=== PATIENT | female | born 1955 | race Caucasian/White ===

== ENCOUNTER 2018-08-08 10:17 | Emergency (ER) | payer MEDICAID ==
[~2018-08-08 10:17] MED LIST: FURO20TA4 PO; LACT PO; PANT40TA25 PO; RIFA550T PO; SPIR50TA5 PO
[2018-08-08 12:34] LABS: BASOPHILS % (AUTO) 0.7 % (0.0-5.0); HEMATOCRIT 30.3 % (36-48); LYMPHOCYTES % (AUTO) 11.8 % (21.0-51.0); MEAN CORPUSCULAR HEMOGLOBIN 36.1 pg (27.0-33.0); MEAN CORPUSCULAR HGB CONC 35.4 g/dL (32.0-36.0); MEAN CORPUSCULAR VOLUME 102.1 fL (79-99); MONOCYTES % (AUTO) 14.4 % (3.0-13.0); NEUTROPHILS % (AUTO) 72.1 % (40.0-77.0); PLATELET COUNT (AUTO) 62 K/uL (130-400); RED BLOOD CELL COUNT(AUTO) 2.97 MIL/uL (4.00-5.50); WHITE BLOOD COUNT (AUTO) 5.7 K/uL (4.8-10.8)
[2018-08-08 12:44] LABS: CREATININE 0.8 mg/dL (0.5-1.5); POTASSIUM 4.1 mmol/L (3.5-5.1)
[2018-08-08 12:45] LABS: INR 1.51 (0.85-1.15); PROTHROMBIN TIME 15.7 SEC (9.6-11.6)
[2018-08-08 12:48] LABS: ALBUMIN 2.4 g/dL (3.5-5.0); BILIRUBIN,TOTAL 4.9 mg/dL (0.2-1.0); MAGNESIUM 1.7 mg/dL (1.80-2.40); TOTAL PROTEIN, SERUM 6.3 g/dL (6.0-8.3)
--- NOTE | 2018-08-08 15:20 | NUR ---
U/S GD PARACENTESIS PROCEDURE PERFORMED BY DR FRANCO. PUNCTURE SITE RUQ AND PATIENT TOLERATED PROCEDURE WELL. TOTAL REMOVED 2.8 LITERS OF CLOUDY YELLOW FLUID. END OF PROCEDURE AT 1530. CATHETER REMOVED AND DRESSING APPLIED. NO BLEEDING NOTED. REPORT GIVEN TO ALEXANDRE CARMICHAEL AND PATIENT TRANSPORTED TO ED-13 VIA STRETCHER. STABLE, AAO X3 WITH NO C/O PAIN.
== END 2018-08-08 16:04 | disposition home or self-care (01) ==
LOC: EDH 10:17
DX: R18.8 Other ascites (principal); M25.471 Effusion, right ankle; M25.472 Effusion, left ankle; R79.1 Abnormal coagulation profile
CPT/HCPCS: 36415; 49083; 80053; 82140; 83735; 85025; 85610; 85730; 99285; A4215

== ENCOUNTER 2018-08-17 09:03 | Emergency (ER) | payer MEDICAID ==
[2018-08-17 10:09] LABS: BASOPHILS % (AUTO) 0.4 % (0.0-5.0); EOSINOPHILS % (AUTO) 2.4 % (0.0-8.0); HEMATOCRIT 32.4 % (36-48); LYMPHOCYTES % (AUTO) 16.2 % (21.0-51.0); MEAN CORPUSCULAR HEMOGLOBIN 35.1 pg (27.0-33.0); MEAN CORPUSCULAR HGB CONC 34.6 g/dL (32.0-36.0); MEAN CORPUSCULAR VOLUME 101.3 fL (79-99); NUCLEATED RED BLOOD CELLS 0.1 % (0.0-0.19); PLATELET COUNT (AUTO) 62 K/uL (130-400); RED CELL DISTRIBUTION WIDTH 16.5 % (11.0-15.5); WHITE BLOOD COUNT (AUTO) 3.9 K/uL (4.8-10.8)
[2018-08-17 10:19] LABS: CREATININE 0.7 mg/dL (0.5-1.5); POTASSIUM 3.8 mmol/L (3.5-5.1)
[2018-08-17 10:21] LABS: INR 1.41 (0.85-1.15); PARTIAL THROMBOPLASTIN TIME 29.9 SEC (26.3-35.5); PROTHROMBIN TIME 14.7 SEC (9.6-11.6)
[2018-08-17 10:25] LABS: ALBUMIN 2.4 g/dL (3.5-5.0); BILIRUBIN,TOTAL 4.9 mg/dL (0.2-1.0); TOTAL PROTEIN, SERUM 6.9 g/dL (6.0-8.3)
--- NOTE | 2018-08-17 12:20 | NUR ---
U/S GD PARACENTESIS PROCEDURE PERFORMED BY DR. LUCAS. PUNCTURE SITE R SIDE OF ABDOMEN AND PATIENT TOLERATED PROCEDURE WELL. TOTAL REMOVED 4 LITERS OF ASCITES. END OF PROCEDURE AT 1215. CATHETER REMOVED AND DRESSING APPLIED. NO BLEEDING NOTED. REPORT GIVEN TO TATUM ESTEVEZ RN, AND PATIENT TRANSPORTED BACK YO ER VIA STRETCHER AAO X3 WITH NO C/O PAIN.
[2018-08-17] MEDS ORDERED: LIDOCAINE HCL 1% 20 ML VIAL ONE (15:24)
== END 2018-08-17 13:40 | disposition home or self-care (01) ==
LOC: EDH 09:03
DX: R18.8 Other ascites (principal); R14.0 Abdominal distension (gaseous); K74.60 Unspecified cirrhosis of liver
CPT/HCPCS: 36415; 49083; 80053; 85025; 85610; 85730; 99284; A4215